=== PATIENT | male | born 1965 | race Caucasian/White ===

== ENCOUNTER 2016-11-05 08:21 | Emergency (ER) | payer SELFPAY ==
[~2016-11-05] VITALS: Ht 188 cm; Wt 100.0 kg
[2016-11-05 08:27] VITALS: BP 165/110; PULSE 107; TEMP 99.2
[2016-11-05] MEDS ORDERED: ASPIRIN E.C. 8181 MG PO (08:32)
[2016-11-05] MEDS ORDERED: ZESTRIL 10MG10 MG PO (08:32)
[2016-11-05] MEDS ORDERED: ULTRAM 50MG TAB50 MG PO (08:46)
== END 2016-11-05 09:00 | disposition home or self-care (01) ==
LOC: COL.ER 08:21
DX: G89.29 Other chronic pain (principal); L90.5 Scar conditions and fibrosis of skin; T20.0 Burn of unspecified degree of head, face, and neck; T21.01XS Burn of unspecified degree of chest wall, sequela; I10 Essential (primary) hypertension; F17.210 Nicotine dependence, cigarettes, uncomplicated